=== PATIENT | male | born 1995 | race Caucasian/White ===

== ENCOUNTER 2021-06-01 16:08 | Inpatient (IN) | payer SELFPAY ==
[2021-06-01 17:19] LABS: Bilirubin,Urine NEG (Negative); Blood,Urine NEG (Negative); Color,Urine Amber (Yellow); Mucus,Urine 3+ /HPF
--- NOTE | 2021-06-01 19:43 | Emergency Department Report ---
<ZINA SHAFFER - Last Filed: 06/01/21 23:56> ED Abdominal Pain HPI - General Chief Complaint: Abdominal Pain Stated Complaint: RT LOWER QUAD PAIN Time Seen by Provider: 06/01/21 19:34 Source: patient Mode of arrival: Ambulatory Limitations: No Limitations - History of Present Illness Initial Comments: 25-year-old male presents to the emergency room by referral from [facility] for right upper quadrant pain for 2 days. Patient admits to nausea and vomiting and fever. Patient states he is vaccinated for Covid. Location: RUQ, R flank Severity scale (0 -10): 8 Quality: stabbing, sharp Consistency: constant Improves With: nothing Worsens With: movement Associated Symptoms: nausea, vomiting - Related Data Allergies Allergy/AdvReac Type Severity Reaction Status Date / Time No Known Allergies Allergy Unverified 06/01/21 16:10 ED Review of Systems Comment: All other systems reviewed and negative ED Past Medical Hx - Past Medical History Previous Medical History?: No - Surgical History Past Surgical History?: No ED Physical Exam - General Limitations: No Limitations General appearance: alert, in no apparent distress - Head Head exam: Present: atraumatic, normocephalic - Eye Eye exam: Present: normal appearance - ENT ENT exam: Present: normal external ear exam - Neck Neck exam: Present: full ROM. Absent: lymphadenopathy - Respiratory Respiratory exam: Present: normal lung sounds bilaterally. Absent: chest wall tenderness - Cardiovascular Cardiovascular Exam: Present: tachycardia - GI/Abdominal GI/Abdominal exam: Present: soft, tenderness (Right lower quadrant), normal bowel sounds. Absent: distended, guarding, rebound - Rectal Rectal exam: Present: deferred - exam: Absent: testicular tenderness, scrotal swelling External exam: Present: normal external exam - Extremities Exam Extremities exam: Present: normal inspection - Back Exam Back exam: Present: normal inspection - Neurological Exam Neurological exam: Present: alert, oriented X3, normal gait - Psychiatric Psychiatric exam: Present: normal affect, normal mood - Skin Skin exam: Present: warm, dry, intact, normal color. Absent: rash ED Medical Decision Making - Lab Data Result diagrams: 06/01/21 19:38 06/01/21 19:38 - Radiology Data Radiology results: report reviewed [facility] [address] [place] [address] Ultrasound Report Signed Patient: ARABELLA BOWEN MR#: [id number] : 1995 Acct:[id number] Age/Sex: 25 / M ADM Date: 06/01/21 Loc: ED Attending Dr: Ordering Physician: NIKKI PEREZ Date of Service: 06/01/21 Procedure(s): US abdomen limited Accession Number(s): [id number] cc: NIKKI PEREZ ULTRASOUND ABDOMEN, LIMITED (RIGHT UPPER QUADRANT) INDICATION / CLINICAL INFORMATION: Right upper quadrant pain with nausea and vomiting. COMPARISON: None available. FINDINGS: PANCREAS: Visualized portion shows no significant abnormality. LIVER: No significant abnormality. GALLBLADDER: No significant abnormality. BILE DUCTS: No significant abnormality. Common bile duct measures 3 mm. FREE FLUID: None. ADDITIONAL FINDINGS: None. IMPRESSION: 1. No significant sonographic abnormality of the right upper quadrant. Signer Name: Greg Buitrago DO Signed: 06/01/2021 9:08 PM Workstation Name: [id number] Transcribed By: NS Dictated By: GREG BUITRAGO DO Electronically Authenticated By: GREG BUITRAGO DO Signed Date/Time: 06/01/212107 DD/ 06 TD/TT: [address] [address] Cat Scan Report Signed Patient: ARABELLA BOWEN MR#: [id number] : 1995 Acct:[id number] Age/Sex: 25 / M ADM Date: 06/01/21 Loc: ED Attending Dr: Ordering Physician: NIKKI PEREZ Date of Service: 06/01/21 Procedure(s): CT abdomen pelvis w con Accession Number(s): [id number] cc: NIKKI PEREZ CT abdomen pelvis w con INDICATION / CLINICAL INFORMATION: RIGHT upper quadrant abd pain with nausea, vomiting and fever. TECHNIQUE: Axial CT images were obtained through the abdomen and pelvis after 100 cc of Omnipaque [address] scans at this location are performed using CT dose reduction for ALARA by means of automated exposure control. COMPARISON: None available. FINDINGS: LOWER CHEST: No significant abnormality LIVER: No significant abnormality GALLBLADDER/BILIARY TREE: No significant abnormality PANCREAS: No significant abnormality SPLEEN: No significant abnormality ADRENALS: No significant abnormality KIDNEYS / URETER: No significant abnormality URINARY BLADDER: No significant abnormality REPRODUCTIVE ORGANS: No significant abnormality STOMACH / BOWEL: The tip of the appendix is dilated with prominent. There is fat stranding. At the tip of the appendix, there is a suspected 2.6 x 1.9 cm rim-enhancing collection (series 2 image 103). This could reflect focal dilation of the distal tip or could reflect small abscess. There is otherwise moderate fluid surrounding the appendix and extending along the right paracolic gutter. No extraluminal gas. No evidence of bowel obstruction. LYMPH NODES: Shotty lymph nodes are present within the right lower quadrant mesentery adjacent to the appendix, likely reactive. Otherwise, no significant adenopathy. VASCULATURE: No significant abnormality. SKELETAL SYSTEM: No acute osseous findings. IMPRESSION: 1. Acute appendicitis with 2.6 cm rim-enhancing fluid-filled structure at the tip of the appendix, which may reflect focal dilation of the appendiceal tip or small abscess. Moderate fluid surrounds the appendix and extends along the right paracolic gutter. Findings are concerning for perforation. However, there is no pneumoperitoneum. 2. Other incidental findings as above. Signer Name: Lela Fernando MD Signed: 06/01/2021 10:57 PM Workstation Name: [id number] Transcribed By: LAUREN Dictated By: LELA FERNANDO MD Electronically Authenticated By: LELA FERNANDO MD Signed Date/Time: 06/01/212256 DD/ 49 TD/TT: - Medical Decision Making 25-year-old male presents to the emergency room by referral from [facility] for right upper quadrant pain for 2 days. Patient admits to nausea and vomiting and fever. Patient states he is vaccinated for Covid. CBC CMP lipase ultrasound for right upper quadrant pain. Came back negative decided to do a CT with contrast of abdomen and pelvis secondary to lower quadrant abdominal tenderness. CT came back positive for acute appendicitis with abscess and concerning for perforation but no pneumoperitoneum. Dr. Zuniga came to evaluate patient as he is fluent in English and my concern was patient possibly has an acute appendicitis. Dr. Butler came to evaluate patient and will consult surgery and admit patient ED Disposition Clinical Impression: Acute appendicitis with appendiceal abscess Disposition: ADMITTED INPATIENT Is pt being admited?: Yes Does the pt Need Aspirin: No Condition: Critical <PAVEL DONALDDAVINA Sexton - Last Filed: 06/02/21 00:20> ED Review of Systems ROS: Stated complaint: RT LOWER QUAD PAIN Other details as noted in HPI ED Course Vital Signs 06/01/21 16:11 Temperature 97.9 F Pulse Rate 103 H Respiratory 18 Rate Blood Pressure 138/89 O2 Sat by Pulse 97 Oximetry - Reevaluation(s) Reevaluation #1: I reviewed the findings and management of this patient in real-time and I have personally seen and examined this patient and participated in the decision making for this patient with the midlevel. Patient is a 25-year-old male that presents emergency room for abdominal pain. Patient complaining of right lower quadrant pain that is worsening. Patient also complains of nausea and vomiting. Patient states he has vomited multiple times. Patient states he received some medications and is feeling a little bit better. Patient states he is vaccinated against COVID-19 with [employer]. Patient had a CT done which shows an acute sinusitis with a possible rupture. I discussed all results with patient. I discussed plan of care with patient. Patient agrees with plan of care and admission. Patient to be admitted to the hospitalist service. 06/01/21 23:54 Reevaluation #2: I discussed all results with patient. I discussed plan of care with patient. Patient agrees with plan of care and admission. Patient to be admitted to the hospitalist service. 06/02/21 00:19 - Consultations Consultation #1: I discussed the case with general surgeon, Dr. Hurd. Dr. Hurd wants patient admitted n.p.o. now. 06/02/21 00:01 Consultation #2: Hospitalist consulted for admission. Hospitalist to admit patient. 06/02/21 00:19 ED Medical Decision Making - Lab Data Result diagrams: 06/01/21 19:38 06/01/21 19:38 Critical Care Time: Yes Critical care time in (mins) excluding proc time.: 35 Critical care attestation.: If time is entered above; I have spent that time in minutes in the direct care of this critically ill patient, excluding procedure time. Critical Care Time: 35 minutes ED Disposition Is pt being admited?: Yes Does the pt Need Aspirin: No Time of Disposition: 00:20
[2021-06-01 19:51] LABS: Basophils % (Auto) 0.2 % (0.0-1.8); Eosinophils % (Auto) 0.1 % (0.0-4.3); Lymphocytes # (Auto) 1.3 K/mm3 (1.2-5.4); Lymphocytes % (Auto) 7.7 % (13.4-35.0); Mean Corpuscular HGB Conc 36 % (32-34); Mean Corpuscular Volume 90 fl (84-94); Monocytes # (Auto) 1.3 K/mm3 (0.0-0.8); Monocytes % (Auto) 7.9 % (0.0-7.3); Platelet Count 247 K/mm3 (140-440); Red Blood Count 5.27 M/mm3 (3.65-5.03); Red Cell Distribution Width 12.8 % (13.2-15.2)
[2021-06-01 20:00] LABS: Hematocrit 47.5 % (35.5-45.6); Hemoglobin 16.9 gm/dl (11.8-15.2)
[2021-06-01 20:02] LABS: Amorphous Crystals,Urine 3+; Bilirubin,Urine NEG (Negative); Blood,Urine SM (Negative); Color,Urine Yellow (Yellow)
[2021-06-01 20:03] LABS: RBC,Urine < 1.0 /HPF (0.0-6.0); WBC,Urine < 1.0 /HPF (0.0-6.0)
[2021-06-01 20:08] LABS: Alanine Aminotransferase 18 units/L (7-56); Albumin 4.5 g/dL (3.9-5); BUN/Creatinine Ratio 10; Blood Urea Nitrogen 9 mg/dL (9-20); Calcium 9.2 mg/dL (8.4-10.2); Hemolysis Index 9
[2021-06-01] MEDS ORDERED: SODIUM CHLORIDE 0.9% 1000 ML 1,000 ML IV ONE (20:26)
[2021-06-01] MEDS ORDERED: MORPHINE 4 MG/1 ML INJ IV ONE (20:27)
--- NOTE | 2021-06-01 21:12 | Ultrasound Report ---
ULTRASOUND ABDOMEN, LIMITED (RIGHT UPPER QUADRANT) INDICATION / CLINICAL INFORMATION: Right upper quadrant pain with nausea and vomiting. COMPARISON: None available. FINDINGS: PANCREAS: Visualized portion shows no significant abnormality. LIVER: No significant abnormality. GALLBLADDER: No significant abnormality. BILE DUCTS: No significant abnormality. Common bile duct measures 3 mm. FREE FLUID: None. ADDITIONAL FINDINGS: None. IMPRESSION: 1. No significant sonographic abnormality of the right upper quadrant. Signer Name: Greg Lord DO Signed: 06/01/2021 9:08 PM Workstation Name: [id number]
--- NOTE | 2021-06-01 23:01 | Cat Scan Report ---
CT abdomen pelvis w con INDICATION / CLINICAL INFORMATION: RIGHT upper quadrant abd pain with nausea, vomiting and fever. TECHNIQUE: Axial CT images were obtained through the abdomen and pelvis after 100 cc of Omnipaque [address] scans at this location are performed using CT dose reduction for ALARA by means of automated exposure control. COMPARISON: None available. FINDINGS: LOWER CHEST: No significant abnormality LIVER: No significant abnormality GALLBLADDER/BILIARY TREE: No significant abnormality PANCREAS: No significant abnormality SPLEEN: No significant abnormality ADRENALS: No significant abnormality KIDNEYS / URETER: No significant abnormality URINARY BLADDER: No significant abnormality REPRODUCTIVE ORGANS: No significant abnormality STOMACH / BOWEL: The tip of the appendix is dilated with prominent. There is fat stranding. At the ti p of the appendix, there is a suspected 2.6 x 1.9 cm rim-enhancing collection (series 2 image 103). T his could reflect focal dilation of the distal tip or could reflect small abscess. There is otherwise moderate fluid surrounding the appendix and extending along the right paracolic gutter. No extralumi nal gas. No evidence of bowel obstruction. LYMPH NODES: Shotty lymph nodes are present within the right lower quadrant mesentery adjacent to the appendix, likely reactive. Otherwise, no significant adenopathy. VASCULATURE: No significant abnormality. SKELETAL SYSTEM: No acute osseous findings. IMPRESSION: 1. Acute appendicitis with 2.6 cm rim-enhancing fluid-filled structure at the tip of the appendix, wh ich may reflect focal dilation of the appendiceal tip or small abscess. Moderate fluid surrounds the appendix and extends along the right paracolic gutter. Findings are concerning for perforation. [facility] er, there is no pneumoperitoneum. 2. Other incidental findings as above. Signer Name: Luis Fernando MD Signed: 06/01/2021 10:57 PM Workstation Name: [id number]
[2021-06-01] MEDS ORDERED: PIPERACIL/TAZOBACTA 4.5/NS 100 4.5 GM/100 ML VIAL IV ONE (23:58)
--- NOTE | 2021-06-02 00:31 | History and Physical Report ---
History of Present Illness Date of examination: 06/02/21 Date of admission: 06/02/21 Chief complaint: abdominal pain History of present illness: This is a 25-year-old young male seen in the ED at bedside. Patient reports abdominal pain right lower quadrant. Abdominal pain level 8/10 at the time of this assessment. Patient presented to the ED with the same signs and symptomsabdominal pain that is ongoing for 2 days patient admits nausea vomiting and fever. Patient denies tobacco, drug and alcohol use. I reviewed patient medical record blood work and vital signs. Patient has elevated WBC. CT of the abdomen pelvis showed acute appendicitis with tip of the appendix dilated also showed a fat stranding and possible abscess. Patient is started on empiric antibiotic and general surgeon consulted. Patient is n.p.o. for possible surgery today. Past History Past Medical History: No medical history ( ) Past Surgical History: No surgical history Social history: lives with family. denies: smoking, alcohol abuse, prescription drug abuse, IV drug use Family history: no significant family history Medications and Allergies Allergies Allergy/AdvReac Type Severity Reaction Status Date / Time No Known Allergies Allergy Unverified 06/01/21 16:10 Active Meds: Active Medications Piperacillin Sod/Tazobactam Sod (Zosyn/Ns 4.5gm/100ml) 4.5 gm in 100 mls @ 200 mls/hr IV ONCE ONE; Protocol Stop: 06/02/21 00:27 Last Admin: 06/02/21 00:20 Dose: 200 mls/hr Documented by: Review of Systems Constitutional: no lethargy Ears, nose, mouth and throat: no epistaxis, no bleeding gums Cardiovascular: no shortness of breath Gastrointestinal: abdominal pain, nausea Musculoskeletal: no neck stiffness, no neck pain Integumentary: no rash, no pruritis, no redness Psychiatric: anxiety Hematologic/Lymphatic: no easy bruising, no easy bleeding Allergic/Immunologic: no urticaria, no allergic rhinitis Exam - Constitutional Vitals: Temp Pulse Resp BP Pulse Ox 97.9 F 103 H 18 138/89 97 06/01/21 16:11 06/01/21 16:11 06/01/21 16:11 06/01/21 16:11 06/01/21 16:11 General appearance: Present: mild distress, well-nourished - EENT Eyes: Present: PERRL ENT: hearing intact, clear oral mucosa - Neck Neck: Present: supple, normal ROM - Respiratory Respiratory effort: normal Respiratory: bilateral: CTA - Cardiovascular Heart Sounds: Present: S1 & S2. Absent: rub, click - Extremities Extremities: pulses symmetrical, No edema Peripheral Pulses: within normal limits - Abdominal General gastrointestinal: Present: soft, tender, normal bowel sounds Male genitourinary: Present: normal - Integumentary Integumentary: Present: clear, warm, dry - Musculoskeletal Musculoskeletal: gait normal, strength equal bilaterally - Psychiatric Psychiatric: appropriate mood/affect, intact judgment & insight - Neurologic Neurologic: CNII-XII intact, moves all extremities - Allied Health Allied health notes reviewed: nursing Results - Labs CBC & Chem 7: 06/01/21 19:38 06/01/21 19:38 Labs: Abnormal lab results 06/01/21 06/01/21 Range/Units 19:38 19:38 WBC 16.9 H (4.5-11.0) K/mm3 RBC 5.27 H (3.65-5.03) M/mm3 Hgb 16.9 H (11.8-15.2) gm/dl Hct 47.5 H (35.5-45.6) % MCHC 36 H (32-34) % RDW 12.8 L (13.2-15.2) % Lymph % (Auto) 7.7 L (13.4-35.0) % [place] % (Auto) 7.9 H (0.0-7.3) % [place] # (Auto) 1.3 H (0.0-0.8) K/mm3 Seg Neutrophils % 84.1 H (40.0-70.0) % Seg Neutrophils # 14.2 H (1.8-7.7) K/mm3 Sodium 135 L (137-145) mmol/L Chloride 95.7 L (98-107) mmol/L Glucose 135 H (75-100) mg/dL Total Protein 8.3 H (6.3-8.2) g/dL Assessment and Plan - Patient Problems (1) Acute appendicitis with appendiceal abscess Current Visit: Yes Status: Acute Plan to address problem: CT showed appendicitis with abscess General surgeon consulted Keep patient n.p.o. post midnight Empiric antibiotic and IV hydration (2) Leukocytosis (leucocytosis) Current Visit: Yes Status: Acute Plan to address problem: Empiric intra-abdominal antibiotic Monitor WBC Blood culture x2 follow-up with results (3) Abdominal pain Current Visit: Yes Status: Acute Plan to address problem: Secondary to appendicitis Pain level 8/10continue pain management (4) DVT prophylaxis Current Visit: Yes Status: Acute Plan to address problem: SCD
[2021-06-02] MEDS ORDERED: MORPHINE 2 MG/1 ML INJ IV PRN (01:00)
[2021-06-02] MEDS ORDERED: ONDANSETRON 4 MG/2 ML INJ IV PRN ×2 (01:00→17:01)
[2021-06-02] MEDS ORDERED: NALOXONE 0.4 MG/1 ML INJ IV PRN (01:00)
[2021-06-02] MEDS ORDERED: SENNOSIDES 8.6 MG TAB PO PRN (01:00)
[2021-06-02] MEDS ORDERED: ALUM-MAG HYDROXIDE-SIMETHICONE 200-200-20MG/5ML ORAL LIQD 30 ML PO PRN (01:00)
[2021-06-02] MEDS ORDERED: ACETAMINOPHEN 325 MG TAB PO PRN (01:00)
[2021-06-02] MEDS ORDERED: MORPHINE 4 MG/1 ML INJ IV PRN (01:00)
[2021-06-02] MEDS ORDERED: IBUPROFEN 600 MG TAB PO PRN (01:00)
[2021-06-02] MEDS ORDERED: MAGNESIUM HYDROXIDE (MOM) ORAL LIQD UDC PO PRN (01:00)
[2021-06-02] MEDS: SODIUM CHLORIDE 0.9% 1000 ML 1,000 ML IV SCH (05:53)
[2021-06-02] MEDS: PIPERACIL/TAZOBACTA 4.5/NS 100 4.5 GM/100 ML VIAL IV SCH ×3 (05:53→22:00)
[2021-06-02] MEDS ORDERED: ENOXAPARIN 30 MG/0.3 ML INJ SUB-Q SCH (10:00)
--- NOTE | 2021-06-02 13:24 | Progress Note ---
Assessment and Plan Assessment and plan: (1) Acute appendicitis with appendiceal abscess Current Visit: Yes Status: Acute Plan to address problem: CT showed appendicitis with abscess General surgeon consulted Keep patient n.p.o. post midnight Empiric antibiotic and IV hydration -Will follow up post op. (2) Leukocytosis (leucocytosis) Current Visit: Yes Status: Acute Plan to address problem: Empiric intra-abdominal antibiotic Monitor WBC Blood culture x2 follow-up with results (3) Abdominal pain Current Visit: Yes Status: Acute Plan to address problem: Secondary to appendicitis Pain level 8/10continue pain management (4) DVT prophylaxis Current Visit: Yes Status: Acute Plan to address problem: SCD History Interval history: Resting comfortably on encounter. Awaiting appendectomy. Hospitalist Physical - Physical exam Narrative exam: General appearance: Present: mild distress, well-nourished - EENT Eyes: Present: PERRL ENT: hearing intact, clear oral mucosa - Neck Neck: Present: supple, normal ROM - Respiratory Respiratory effort: normal Respiratory: bilateral: CTA - Cardiovascular Heart Sounds: Present: S1 & S2. Absent: rub, click - Extremities Extremities: pulses symmetrical, No edema Peripheral Pulses: within normal limits - Abdominal General gastrointestinal: Present: soft, tender, normal bowel sounds, predominantly in RLQ. Male genitourinary: Present: normal - Integumentary Integumentary: Present: clear, warm, dry - Musculoskeletal Musculoskeletal: gait normal, strength equal bilaterally - Psychiatric Psychiatric: appropriate mood/affect, intact judgment & insight - Neurologic Neurologic: CNII-XII intact, moves all extremities - Allied Health Allied health notes reviewed: nursing - Constitutional Vitals: Temp Pulse Resp BP Pulse Ox 97.4 F L 76 18 126/61 98 06/02/21 11:34 06/02/21 11:34 06/02/21 11:34 06/02/21 11:34 06/02/21 11:34 General appearance: Present: mild distress, well-nourished Results - Labs CBC & Chem 7: 06/01/21 19:38 06/01/21 19:38 Labs: Laboratory Last Values WBC 16.9 K/mm3 (4.5-11.0) H 06/01/21 19:38 RBC 5.27 M/mm3 (3.65-5.03) H 06/01/21 19:38 Hgb 16.9 gm/dl (11.8-15.2) H 06/01/21 19:38 Hct 47.5 % (35.5-45.6) H 06/01/21 19:38 MCV 90 fl (84-94) 06/01/21 19:38 MCH 32 pg (28-32) 06/01/21 19:38 MCHC 36 % (32-34) H 06/01/21 19:38 RDW 12.8 % (13.2-15.2) L 06/01/21 19:38 Plt Count 247 K/mm3 (140-440) 06/01/21 19:38 Lymph % (Auto) 7.7 % (13.4-35.0) L 06/01/21 19:38 [place] % (Auto) 7.9 % (0.0-7.3) H 06/01/21 19:38 Eos % (Auto) 0.1 % (0.0-4.3) 06/01/21 19:38 Baso % (Auto) 0.2 % (0.0-1.8) 06/01/21 19:38 Lymph # (Auto) 1.3 K/mm3 (1.2-5.4) 06/01/21 19:38 [place] # (Auto) 1.3 K/mm3 (0.0-0.8) H 06/01/21 19:38 Eos # (Auto) 0.0 K/mm3 (0.0-0.4) 06/01/21 19:38 Baso # (Auto) 0.0 K/mm3 (0.0-0.1) 06/01/21 19:38 Seg Neutrophils % 84.1 % (40.0-70.0) H 06/01/21 19:38 Seg Neutrophils # 14.2 K/mm3 (1.8-7.7) H 06/01/21 19:38 Sodium 135 mmol/L (137-145) L 06/01/21 19:38 Potassium 4.0 mmol/L (3.6-5.0) 06/01/21 19:38 Chloride 95.7 mmol/L (98-107) L 06/01/21 19:38 Carbon Dioxide 24 mmol/L (22-30) 06/01/21 19:38 Anion Gap 19 mmol/L 06/01/21 19:38 BUN 9 mg/dL (9-20) 06/01/21 19:38 Creatinine 0.9 mg/dL (0.8-1.3) 06/01/21 19:38 Estimated GFR > 60 ml/min 06/01/21 19:38 BUN/Creatinine Ratio 10 % 06/01/21 19:38 Glucose 135 mg/dL (75-100) H 06/01/21 19:38 Calcium 9.2 mg/dL (8.4-10.2) 06/01/21 19:38 Total Bilirubin 1.00 mg/dL (0.1-1.2) 06/01/21 19:38 AST 14 units/L (5-40) 06/01/21 19:38 ALT 18 units/L (7-56) 06/01/21 19:38 Alkaline Phosphatase 92 units/L (35-129) 06/01/21 19:38 Total Protein 8.3 g/dL (6.3-8.2) H 06/01/21 19:38 Albumin 4.5 g/dL (3.9-5) 06/01/21 19:38 Albumin/Globulin Ratio 1.2 % 06/01/21 19:38 Lipase 24 units/L (13-60) 06/01/21 19:38 Urine Color Yellow (Yellow) 06/01/21 Unknown Urine Turbidity Turbid (Clear) 06/01/21 Unknown Urine pH 5.0 (5.0-7.0) 06/01/21 Unknown Ur Specific [place] 1.030 (1.003-1.030) 06/01/21 Unknown Urine Protein 100 mg/dl mg/dL (Negative) 06/01/21 Unknown Urine Glucose (UA) 50 mg/dL (Negative) 06/01/21 Unknown Urine Ketones Neg mg/dL (Negative) 06/01/21 Unknown Urine Blood Sm (Negative) 06/01/21 Unknown Urine Nitrite Neg (Negative) 06/01/21 Unknown Urine Bilirubin Neg (Negative) 06/01/21 Unknown Urine Urobilinogen 2.0 mg/dL (<2.0) 06/01/21 Unknown Ur Leukocyte Esterase Neg (Negative) 06/01/21 Unknown Urine WBC (Auto) < 1.0 /HPF (0.0-6.0) 06/01/21 Unknown Urine RBC (Auto) < 1.0 /HPF (0.0-6.0) 06/01/21 Unknown U Epithel Cells (Auto) < 1.0 /HPF (0-13.0) 06/01/21 16:17 Amorphous Crystals 3+ 06/01/21 Unknown Urine Mucus 3+ /HPF 06/01/21 16:17 Microbiology: Microbiology 06/02/21 07:24 Peripheral/Venous Blood Culture - Preliminary Culture in Progress 06/02/21 07:24 Peripheral/Venous Blood Culture - Preliminary Culture in Progress Active Medications - Current Medications Current Medications: Generic Name Dose Route Start Last Admin Trade Name Freq PRN Reason Stop Dose Admin Acetaminophen 650 mg 06/02/21 01:00 Acetaminophen 325 Mg Tab PO Q4H PRN Pain MILD(1-3)/Fever >100.5/[place] Al Hydrox/Mg Hydrox/Simethicone 30 ml 06/02/21 01:00 Alum-Mag Hydroxide-Simethicone [phone]/5ml Oral Liqd 30 Ml PO Q4H PRN Indigestion Enoxaparin Sodium 40 mg 06/02/21 10:00 06/02/21 10:27 Enoxaparin 30 Mg/0.3 Ml Inj SUB-Q Not Given DAILY ZULMA Protocol Sodium Chloride 1,000 mls @ 100 mls/hr 06/02/21 01:00 06/02/21 05:53 Nacl 0.9% 1000 Ml IV 100 mls/hr DIRECT ZULMA Administration Piperacillin Sod/Tazobactam Sod 4.5 gm in 100 mls @ 200 mls/hr 06/02/21 06:00 06/02/21 05:53 Zosyn/Ns 4.5gm/100ml IV 200 mls/hr Q8H ZULMA Administration Protocol Ibuprofen 600 mg 06/02/21 01:00 Ibuprofen 600 Mg Tab PO Q6H PRN Pain, Mild (1-3) Magnesium Hydroxide 30 ml 06/02/21 01:00 Magnesium Hydroxide (Mom) Oral Liqd Udc PO Q4H PRN Constipation Morphine Sulfate 2 mg 06/02/21 01:00 Morphine 2 Mg/1 Ml Inj IV Q4H PRN Pain, Moderate (4-6) Morphine Sulfate 4 mg 06/02/21 01:00 Morphine 4 Mg/1 Ml Inj IV Q4H PRN Pain , Severe (7-10) Naloxone HCl 0.1 mg 06/02/21 01:00 Naloxone 0.4 Mg/1 Ml Inj IV Q2MIN PRN Res Rate </= 8 or 02 SAT < 92% Ondansetron HCl 4 mg 06/02/21 01:00 Ondansetron 4 Mg/2 Ml Inj IV Q8H PRN Nausea And Vomiting Oxycodone/Acetaminophen 1 tab 06/02/21 01:00 Oxycodone /Acetaminophen 5-325mg Tab PO Q6H PRN Pain, Moderate (4-6) Senna 8.6 mg 06/02/21 01:00 Sennosides 8.6 Mg Tab PO Q12HR PRN Constipation Sodium Chloride 10 ml 06/02/21 10:00 06/02/21 10:27 Sodium Chloride 0.9% 10 Ml Flush Syringe IV Not Given BID ZULMA
[2021-06-02] MEDS ORDERED: LIDOCAINE MPF (2%) 20 MG/1 ML VIAL 5 ML ONE (14:22)
[2021-06-02] MEDS ORDERED: dexAMETHasone 20 MG/5 ML VIAL ONE (14:22)
[2021-06-02] MEDS ORDERED: ROCURONIUM 50 MG/5 ML INJ IV ONE (14:22)
[2021-06-02] MEDS ORDERED: ONDANSETRON 4 MG/2 ML INJ ONE (14:23)
[2021-06-02] MEDS ORDERED: fentaNYL 100 MCG/2 ML INJ ONE (14:23)
[2021-06-02] MEDS ORDERED: propofoL 200 MG/20 ML VIAL IV ONE (14:24)
--- NOTE | 2021-06-02 14:25 | Anesthesia Day of Surgery ---
Anesthesia Day of Surgery - Day of Surgery Patient Examined: Yes Patient H&P Reviewed: Yes Patient is NPO: Yes
--- NOTE | 2021-06-02 14:26 | Anesthesia Consultation ---
Anesthesia Consult and Med Hx Date of service: 06/02/21 - Airway Anesthetic Teeth Evaluation: Good ROM Head & Neck: Adequate Mental/Hyoid Distance: Adequate Mallampati Class: Class II Intubation Access Assessment: Good - Pre-Operative Health Status ASA Pre-Surgery Classification: ASA1, Emergency Proposed Anesthetic Plan: General - Pulmonary Hx Smoking: No - Other Systems Hx Alcohol Use: No
--- NOTE | 2021-06-02 14:26 | Consultation ---
History of Present Illness Consult date: 06/02/21 Reason for consult: abdominal pain - History of present illness History of present illness: 25 yo male with 24 hour h/o RLQ pain, nausea, vomiting and fever. Denies hematemesis, melena or hematochezia. No change in bowel habits or urinary complaints. Past History Past Medical History: No medical history ( ) Past Surgical History: No surgical history Social history: lives with family. denies: smoking, alcohol abuse, prescription drug abuse, IV drug use Family history: no significant family history Medications and Allergies Allergies Allergy/AdvReac Type Severity Reaction Status Date / Time No Known Allergies Allergy Unverified 06/01/21 16:10 Active Meds: Active Medications Acetaminophen (Acetaminophen 325 Mg Tab) 650 mg PO Q4H PRN PRN Reason: Pain MILD(1-3)/Fever >100.5/[place] Al Hydrox/Mg Hydrox/Simethicone (Alum-Mag Hydroxide-Simethicone [phone]/5ml Oral Liqd 30 Ml) 30 ml PO Q4H PRN PRN Reason: Indigestion Enoxaparin Sodium (Enoxaparin 30 Mg/0.3 Ml Inj) 40 mg SUB-Q DAILY ZULMA; Protocol Last Admin: 06/02/21 10:27 Dose: Not Given Documented by: Sodium Chloride (Nacl 0.9% 1000 Ml) 1,000 mls @ 100 mls/hr IV DIRECT ZULMA Last Admin: 06/02/21 05:53 Dose: 100 mls/hr Documented by: Piperacillin Sod/Tazobactam Sod (Zosyn/Ns 4.5gm/100ml) 4.5 gm in 100 mls @ 200 mls/hr IV Q8H ZULMA; Protocol Last Admin: 06/02/21 05:53 Dose: 200 mls/hr Documented by: Ibuprofen (Ibuprofen 600 Mg Tab) 600 mg PO Q6H PRN PRN Reason: Pain, Mild (1-3) Magnesium Hydroxide (Magnesium Hydroxide (Mom) Oral Liqd Udc) 30 ml PO Q4H PRN PRN Reason: Constipation Morphine Sulfate (Morphine 2 Mg/1 Ml Inj) 2 mg IV Q4H PRN PRN Reason: Pain, Moderate (4-6) Morphine Sulfate (Morphine 4 Mg/1 Ml Inj) 4 mg IV Q4H PRN PRN Reason: Pain , Severe (7-10) Naloxone HCl (Naloxone 0.4 Mg/1 Ml Inj) 0.1 mg IV Q2MIN PRN PRN Reason: Res Rate </= 8 or 02 SAT < 92% Ondansetron HCl (Ondansetron 4 Mg/2 Ml Inj) 4 mg IV Q8H PRN PRN Reason: Nausea And Vomiting Oxycodone/Acetaminophen (Oxycodone /Acetaminophen 5-325mg Tab) 1 tab PO Q6H PRN PRN Reason: Pain, Moderate (4-6) Senna (Sennosides 8.6 Mg Tab) 8.6 mg PO Q12HR PRN PRN Reason: Constipation Sodium Chloride (Sodium Chloride 0.9% 10 Ml Flush Syringe) 10 ml IV BID ZULMA Last Admin: 06/02/21 10:27 Dose: Not Given Documented by: Review of Systems All systems: negative (none) Exam Vital Signs Temp Pulse Resp BP Pulse Ox 97.9 F 103 H 18 138/89 97 06/01/21 16:11 06/01/21 16:11 06/01/21 16:11 06/01/21 16:11 06/01/21 16:11 - General physical appearance Positive: well developed, well nourished, no distress - Eyes Positive: PERRL, normal occular movement - ENT Positive: normal pinna, normal nares, normal mucosa, no hearing loss, no congestion - Neck Positive: no masses, no bruits, trachea midline, no venous distension - Respiratory Positive: normal expansion, normal respiratory effort, clear to auscultation - Cardiovascular Rhythm: regular Heart Sounds: Present: S1 & S2. Absent: rub, click - Extremities Extremities: no ischemia, pulses symmetrical, No edema - Breasts Breasts: normal, no mass, no skin changes - Abdomen Abdomen: Present: soft, bowel sounds normal, other (Tender in the right mid- abdomen/RLQ with early guarding. No rebound.). Absent: distended Hernia: none - Genitourinary Male Genitourinary: normal Female Genitourinary: normal - Integumentary no rash, no growths, no abnormal pigmentation - Neurologic Neurologic: alert and oriented to time, place and person, motor strength and sensation are grossly intact - Musculoskeletal normal gait, normal posture - Psychiatric Psychiatric: appropriate mood/affect, intact judgment & insight Results - Labs 06/01/21 19:38 06/01/21 19:38 Abnormal lab results 06/01/21 06/01/21 Range/Units 19:38 19:38 WBC 16.9 H (4.5-11.0) K/mm3 RBC 5.27 H (3.65-5.03) M/mm3 Hgb 16.9 H (11.8-15.2) gm/dl Hct 47.5 H (35.5-45.6) % MCHC 36 H (32-34) % RDW 12.8 L (13.2-15.2) % Lymph % (Auto) 7.7 L (13.4-35.0) % [place] % (Auto) 7.9 H (0.0-7.3) % [place] # (Auto) 1.3 H (0.0-0.8) K/mm3 Seg Neutrophils % 84.1 H (40.0-70.0) % Seg Neutrophils # 14.2 H (1.8-7.7) K/mm3 Sodium 135 L (137-145) mmol/L Chloride 95.7 L (98-107) mmol/L Glucose 135 H (75-100) mg/dL Total Protein 8.3 H (6.3-8.2) g/dL Diabetes panel 06/01/21 Range/Units 19:38 Sodium 135 L (137-145) mmol/L Potassium 4.0 (3.6-5.0) mmol/L Chloride 95.7 L (98-107) mmol/L Carbon Dioxide 24 (22-30) mmol/L BUN 9 (9-20) mg/dL Creatinine 0.9 (0.8-1.3) mg/dL Glucose 135 H (75-100) mg/dL Calcium 9.2 (8.4-10.2) mg/dL AST 14 (5-40) units/L ALT 18 (7-56) units/L Alkaline Phosphatase 92 (35-129) units/L Total Protein 8.3 H (6.3-8.2) g/dL Albumin 4.5 (3.9-5) g/dL Calcium panel 06/01/21 Range/Units 19:38 Calcium 9.2 (8.4-10.2) mg/dL Albumin 4.5 (3.9-5) g/dL Pituitary panel 06/01/21 Range/Units 19:38 Sodium 135 L (137-145) mmol/L Potassium 4.0 (3.6-5.0) mmol/L Chloride 95.7 L (98-107) mmol/L Carbon Dioxide 24 (22-30) mmol/L BUN 9 (9-20) mg/dL Creatinine 0.9 (0.8-1.3) mg/dL Glucose 135 H (75-100) mg/dL Calcium 9.2 (8.4-10.2) mg/dL Adrenal panel 06/01/21 Range/Units 19:38 Sodium 135 L (137-145) mmol/L Potassium 4.0 (3.6-5.0) mmol/L Chloride 95.7 L (98-107) mmol/L Carbon Dioxide 24 (22-30) mmol/L BUN 9 (9-20) mg/dL Creatinine 0.9 (0.8-1.3) mg/dL Glucose 135 H (75-100) mg/dL Calcium 9.2 (8.4-10.2) mg/dL Total Bilirubin 1.00 (0.1-1.2) mg/dL AST 14 (5-40) units/L ALT 18 (7-56) units/L Alkaline Phosphatase 92 (35-129) units/L Total Protein 8.3 H (6.3-8.2) g/dL Albumin 4.5 (3.9-5) g/dL - Imaging CT scan - abdomen: report reviewed CT scan - pelvis: report reviewed Assessment and Plan - Patient Problems (1) Acute appendicitis with appendiceal abscess Current Visit: Yes Status: Acute Plan to address problem: 1) Broad spectrum IV antibiotics 2) NPO 3) Lap appy
[2021-06-02] MEDS ORDERED: BUPIVACAINE/PF (0.5%) 5 MG/1 ML 30 ML VIAL INFILTRATI ONE ×2 (14:34→16:16)
[2021-06-02] MEDS ORDERED: LACTATED RINGERS 1,000 ML ONE ×2 (14:55→16:27)
[2021-06-02] MEDS ORDERED: HYDROmorphone 1 MG/1 ML INJ ONE (15:16)
[2021-06-02] MEDS ORDERED: SODIUM CHLORIDE 0.9% IRR 1,000 ML BOTTLE IR ONE (15:53)
[2021-06-02] MEDS ORDERED: SODIUM CHLORIDE 0.9% IRRIG SOLN 2000 ML IR ONE (15:56)
[2021-06-02] MEDS ORDERED: GLYCOPYRROLATE 0.4 MG/2 ML INJ ONE (16:00)
[2021-06-02] MEDS ORDERED: NEOSTIGMINE 10MG/10 ML INJ MDV ONE (16:00)
--- NOTE | 2021-06-02 16:35 | Procedure Note ---
Date of procedure: 06/02/21 Pre-op diagnosis: Acute appendicitis with abscess Post-op diagnosis: same Procedure: Laparoscopic appendectomy Description of procedure: Pt was placed supine on the OR table. GETA was administered. Proposed trocar sites were infiltrated with 8 ml of 1% Lidocaine with epinephrine. A small infraumbilical incision was made and the peritoneal cavity carefully entered. A Jose Alberto port was inserted into the peritoneal cavity and pneumoperitoneum established. Two 5 mm ports were inserted in the midline of the suprapubic area and laterally in the LLQ. This was performed under direct vision. Pt was placed head and left side down. An obvious significant inflammatory process was noted in the right mid-abdomen. Adhesions between the cecum and anterior peritoneum were bluntly lysed and a small abscess cavity was entered. Pus from the abscess was collected for C&S. Appendix was eventually identified. Mesoappendix was divided with the Ligasure device. Base of the appendix was amputated with a white load of an endo-RAVI stapler. The appendix was placed in an endobag and the endobag removed via the infraumbilical fascial defect. The Jose Alberto port was replaced and irrigation fluid used during the procedure was aspirated. The two 5 mm ports were removed with no bleeding identified from the port entry sites under low pressure. The infraumbilical fascial defect was closed with two interrupted sutures of 0-Vicryl. Each skin incision was approximated with 1 interrupted suture of 3-0 Nylon. One quarter inch Iodoform wick was then packed in each incision on either side of the 3-0 Nylon suture. Each incision was covered with dry 4 X 4's which was secured with Medipore tape. Anesthesia: GETA Surgeon: DIEGO MORENO Estimated blood loss: 50-100ml Pathology: list (1) appendix 2) C&S) Specimen disposition: to lab Condition: stable Disposition: PACU
[2021-06-02] MEDS ORDERED: HYDROmorphone 1 MG/1 ML INJ IV PRN ×2 (17:01)
[2021-06-03] MEDS: PIPERACIL/TAZOBACTA 4.5/NS 100 4.5 GM/100 ML VIAL IV SCH ×3 (06:00→22:26)
[2021-06-03 06:27] LABS: Basophils % (Auto) 0.1 % (0.0-1.8); Lymphocytes # (Auto) 0.8 K/mm3 (1.2-5.4); Lymphocytes % (Auto) 5.1 % (13.4-35.0); Mean Corpuscular HGB Conc 36 % (32-34); Mean Corpuscular Volume 90 fl (84-94); Monocytes # (Auto) 1.2 K/mm3 (0.0-0.8); Platelet Count 252 K/mm3 (140-440); Red Blood Count 4.95 M/mm3 (3.65-5.03); Red Cell Distribution Width 12.5 % (13.2-15.2)
[2021-06-03 06:34] LABS: Hematocrit 44.5 % (35.5-45.6); Hemoglobin 15.9 gm/dl (11.8-15.2)
[2021-06-03 06:35] LABS: Alanine Aminotransferase 12 units/L (7-56); Blood Urea Nitrogen 9 mg/dL (9-20); Calcium 9.1 mg/dL (8.4-10.2); Hemolysis Index 1
[2021-06-03 06:36] LABS: BUN/Creatinine Ratio 13
[2021-06-03] MEDS: SODIUM CHLORIDE 0.9% 1000 ML 1,000 ML IV SCH (06:41)
--- NOTE | 2021-06-03 08:29 | Post Anesthesia Evaluation ---
- Post Anesthesia Evaluation Patient Participated: Yes Airway Patent: Yes Stable Respiratory Function: Yes Nausea/Vomiting: No Temp > 96.8F: Yes Pain Manageable: Yes Adequeate Hydration: Yes Anesthesia Complications: No Block Receding Appropriately: Not Applicable Patient on Ventilator: No
[2021-06-03] MEDS: ENOXAPARIN 40 MG/0.4 ML INJ SUB-Q SCH (10:15)
--- NOTE | 2021-06-03 14:06 | Progress Note ---
Assessment and Plan - Patient Problems (1) Acute appendicitis with appendiceal abscess Current Visit: Yes Status: Acute Plan to address problem: 1) FLD 2) Continue IV antibiotics 3) F/u C&S Subjective Date of service: 06/03/21 Patient Reports: Positive: no new complaints, feels better, pain is less, tolerating liquids well Objective Vital Signs - 12hr 06/03/21 06/03/21 06/03/21 03:10 08:09 12:16 Temperature 97.6 F 98.2 F 98.2 F Pulse Rate 90 81 83 Respiratory 18 18 18 Rate Blood Pressure 128/70 126/70 136/78 O2 Sat by Pulse 96 96 95 Oximetry - Abdomen soft, bowel sounds hypoactive (Minimal RLQ tenderness) - Labs 06/03/21 05:38 06/03/21 05:14 Diabetes panel 06/03/21 Range/Units 05:14 Sodium 135 L (137-145) mmol/L Potassium 3.7 (3.6-5.0) mmol/L Chloride 97.2 L (98-107) mmol/L Carbon Dioxide 24 (22-30) mmol/L BUN 9 (9-20) mg/dL Creatinine 0.7 L (0.8-1.3) mg/dL Glucose 132 H (75-100) mg/dL Calcium 9.1 (8.4-10.2) mg/dL AST 11 (5-40) units/L ALT 12 (7-56) units/L Alkaline Phosphatase 81 (35-129) units/L Total Protein 8.0 (6.3-8.2) g/dL Albumin 4.0 (3.9-5) g/dL Calcium panel 06/03/21 Range/Units 05:14 Calcium 9.1 (8.4-10.2) mg/dL Albumin 4.0 (3.9-5) g/dL Pituitary panel 06/03/21 Range/Units 05:14 Sodium 135 L (137-145) mmol/L Potassium 3.7 (3.6-5.0) mmol/L Chloride 97.2 L (98-107) mmol/L Carbon Dioxide 24 (22-30) mmol/L BUN 9 (9-20) mg/dL Creatinine 0.7 L (0.8-1.3) mg/dL Glucose 132 H (75-100) mg/dL Calcium 9.1 (8.4-10.2) mg/dL Adrenal panel 06/03/21 Range/Units 05:14 Sodium 135 L (137-145) mmol/L Potassium 3.7 (3.6-5.0) mmol/L Chloride 97.2 L (98-107) mmol/L Carbon Dioxide 24 (22-30) mmol/L BUN 9 (9-20) mg/dL Creatinine 0.7 L (0.8-1.3) mg/dL Glucose 132 H (75-100) mg/dL Calcium 9.1 (8.4-10.2) mg/dL Total Bilirubin 1.40 H (0.1-1.2) mg/dL AST 11 (5-40) units/L ALT 12 (7-56) units/L Alkaline Phosphatase 81 (35-129) units/L Total Protein 8.0 (6.3-8.2) g/dL Albumin 4.0 (3.9-5) g/dL
--- NOTE | 2021-06-03 16:58 | Progress Note ---
Assessment and Plan Assessment and plan: 06/03/2021: recovering well post op. continue supporitive management with ivf and abx. will follow cultures and surgery recs. (1) Acute appendicitis with appendiceal abscess Current Visit: Yes Status: Acute Plan to address problem: CT showed appendicitis with abscess General surgeon consulted Keep patient n.p.o. post midnight Empiric antibiotic and IV hydration (2) Leukocytosis (leucocytosis) Current Visit: Yes Status: Acute Plan to address problem: Empiric intra-abdominal antibiotic Monitor WBC Blood culture x2 follow-up with results (3) Abdominal pain Current Visit: Yes Status: Acute Plan to address problem: Secondary to appendicitis Pain level 8/10continue pain management (4) DVT prophylaxis Current Visit: Yes Status: Acute Plan to address problem: SCD History Interval history: Resting comfortably on encounter. s/p appendectomy. No complaints. Hospitalist Physical - Physical exam Narrative exam: General appearance: Present: mild distress, well-nourished - EENT Eyes: Present: PERRL ENT: hearing intact, clear oral mucosa - Neck Neck: Present: supple, normal ROM - Respiratory Respiratory effort: normal Respiratory: bilateral: CTA - Cardiovascular Heart Sounds: Present: S1 & S2. Absent: rub, click - Extremities Extremities: pulses symmetrical, No edema Peripheral Pulses: within normal limits - Abdominal General gastrointestinal: Present: mildly tender, normal bowel sounds, predominantly in RLQ. Male genitourinary: Present: normal - Integumentary Integumentary: Present: clear, warm, dry, surgical sites healing well, no drainage. - Musculoskeletal Musculoskeletal: gait normal, strength equal bilaterally - Psychiatric Psychiatric: appropriate mood/affect, intact judgment & insight - Neurologic Neurologic: CNII-XII intact, moves all extremities - Allied Health Allied health notes reviewed: nursing - Constitutional Vitals: Temp Pulse Resp BP Pulse Ox 98.2 F 83 18 136/78 95 06/03/21 12:16 06/03/21 12:16 06/03/21 12:16 06/03/21 12:16 06/03/21 12:16 General appearance: Present: mild distress, well-nourished Results - Labs CBC & Chem 7: 06/03/21 05:38 06/03/21 05:14 Labs: Laboratory Last Values WBC 15.3 K/mm3 (4.5-11.0) H 06/03/21 05:38 RBC 4.95 M/mm3 (3.65-5.03) 06/03/21 05:38 Hgb 15.9 gm/dl (11.8-15.2) H 06/03/21 05:38 Hct 44.5 % (35.5-45.6) 06/03/21 05:38 MCV 90 fl (84-94) 06/03/21 05:38 MCH 32 pg (28-32) 06/03/21 05:38 MCHC 36 % (32-34) H 06/03/21 05:38 RDW 12.5 % (13.2-15.2) L 06/03/21 05:38 Plt Count 252 K/mm3 (140-440) 06/03/21 05:38 Lymph % (Auto) 5.1 % (13.4-35.0) L 06/03/21 05:38 [place] % (Auto) 8.0 % (0.0-7.3) H 06/03/21 05:38 Eos % (Auto) 0.0 % (0.0-4.3) 06/03/21 05:38 Baso % (Auto) 0.1 % (0.0-1.8) 06/03/21 05:38 Lymph # (Auto) 0.8 K/mm3 (1.2-5.4) L 06/03/21 05:38 [place] # (Auto) 1.2 K/mm3 (0.0-0.8) H 06/03/21 05:38 Eos # (Auto) 0.0 K/mm3 (0.0-0.4) 06/03/21 05:38 Baso # (Auto) 0.0 K/mm3 (0.0-0.1) 06/03/21 05:38 Seg Neutrophils % 86.8 % (40.0-70.0) H 06/03/21 05:38 Seg Neutrophils # 13.3 K/mm3 (1.8-7.7) H 06/03/21 05:38 Sodium 135 mmol/L (137-145) L 06/03/21 05:14 Potassium 3.7 mmol/L (3.6-5.0) 06/03/21 05:14 Chloride 97.2 mmol/L (98-107) L 06/03/21 05:14 Carbon Dioxide 24 mmol/L (22-30) 06/03/21 05:14 Anion Gap 18 mmol/L 06/03/21 05:14 BUN 9 mg/dL (9-20) 06/03/21 05:14 Creatinine 0.7 mg/dL (0.8-1.3) L 06/03/21 05:14 Estimated GFR > 60 ml/min 06/03/21 05:14 BUN/Creatinine Ratio 13 % 06/03/21 05:14 Glucose 132 mg/dL (75-100) H 06/03/21 05:14 Calcium 9.1 mg/dL (8.4-10.2) 06/03/21 05:14 Total Bilirubin 1.40 mg/dL (0.1-1.2) H 06/03/21 05:14 AST 11 units/L (5-40) 06/03/21 05:14 ALT 12 units/L (7-56) 06/03/21 05:14 Alkaline Phosphatase 81 units/L (35-129) 06/03/21 05:14 Total Protein 8.0 g/dL (6.3-8.2) 06/03/21 05:14 Albumin 4.0 g/dL (3.9-5) 06/03/21 05:14 Albumin/Globulin Ratio 1.0 % 06/03/21 05:14 Lipase 24 units/L (13-60) 06/01/21 19:38 Urine Color Yellow (Yellow) 06/01/21 Unknown Urine Turbidity Turbid (Clear) 06/01/21 Unknown Urine pH 5.0 (5.0-7.0) 06/01/21 Unknown Ur Specific [place] 1.030 (1.003-1.030) 06/01/21 Unknown Urine Protein 100 mg/dl mg/dL (Negative) 06/01/21 Unknown Urine Glucose (UA) 50 mg/dL (Negative) 06/01/21 Unknown Urine Ketones Neg mg/dL (Negative) 06/01/21 Unknown Urine Blood Sm (Negative) 06/01/21 Unknown Urine Nitrite Neg (Negative) 06/01/21 Unknown Urine Bilirubin Neg (Negative) 06/01/21 Unknown Urine Urobilinogen 2.0 mg/dL (<2.0) 06/01/21 Unknown Ur Leukocyte Esterase Neg (Negative) 06/01/21 Unknown Urine WBC (Auto) < 1.0 /HPF (0.0-6.0) 06/01/21 Unknown Urine RBC (Auto) < 1.0 /HPF (0.0-6.0) 06/01/21 Unknown U Epithel Cells (Auto) < 1.0 /HPF (0-13.0) 06/01/21 16:17 Amorphous Crystals 3+ 06/01/21 Unknown Urine Mucus 3+ /HPF 06/01/21 16:17 Microbiology: Microbiology 06/02/21 07:24 Peripheral/Venous Blood Culture - Preliminary NO GROWTH AFTER 24 HOURS 06/02/21 07:24 Peripheral/Venous Blood Culture - Preliminary NO GROWTH AFTER 24 HOURS Priest/IV: Voiding Method Toilet Active Medications - Current Medications Current Medications: Generic Name Dose Route Start Last Admin Trade Name Freq PRN Reason Stop Dose Admin Acetaminophen 650 mg 06/02/21 01:00 Acetaminophen 325 Mg Tab PO Q4H PRN Pain MILD(1-3)/Fever >100.5/[place] Al Hydrox/Mg Hydrox/Simethicone 30 ml 06/02/21 01:00 Alum-Mag Hydroxide-Simethicone [id number]/5ml Oral Liqd 30 Ml PO Q4H PRN Indigestion Enoxaparin Sodium 40 mg 06/03/21 10:00 06/03/21 10:15 Enoxaparin 40 Mg/0.4 Ml Inj SUB-Q 40 mg DAILY ZULMA Administration Protocol Sodium Chloride 1,000 mls @ 100 mls/hr 06/02/21 01:00 06/03/21 06:41 Nacl 0.9% 1000 Ml IV 100 mls/hr DIRECT ZULMA Administration Piperacillin Sod/Tazobactam Sod 4.5 gm in 100 mls @ 200 mls/hr 06/02/21 06:00 06/03/21 06:00 Zosyn/Ns 4.5gm/100ml IV 200 mls/hr Q8H ZULMA Administration Protocol Ibuprofen 600 mg 06/02/21 01:00 Ibuprofen 600 Mg Tab PO Q6H PRN Pain, Mild (1-3) Magnesium Hydroxide 30 ml 06/02/21 01:00 Magnesium Hydroxide (Mom) Oral Liqd Udc PO Q4H PRN Constipation Morphine Sulfate 2 mg 06/02/21 01:00 Morphine 2 Mg/1 Ml Inj IV Q4H PRN Pain, Moderate (4-6) Morphine Sulfate 4 mg 06/02/21 01:00 Morphine 4 Mg/1 Ml Inj IV Q4H PRN Pain , Severe (7-10) Naloxone HCl 0.1 mg 06/02/21 01:00 Naloxone 0.4 Mg/1 Ml Inj IV Q2MIN PRN Res Rate </= 8 or 02 SAT < 92% Ondansetron HCl 4 mg 06/02/21 01:00 Ondansetron 4 Mg/2 Ml Inj IV Q8H PRN Nausea And Vomiting Oxycodone/Acetaminophen 1 tab 06/02/21 01:00 Oxycodone /Acetaminophen 5-325mg Tab PO Q6H PRN Pain, Moderate (4-6) Senna 8.6 mg 06/02/21 01:00 Sennosides 8.6 Mg Tab PO Q12HR PRN Constipation Sodium Chloride 10 ml 06/02/21 10:00 06/02/21 22:00 Sodium Chloride 0.9% 10 Ml Flush Syringe IV 10 ml BID ZULMA Administration
[2021-06-04] MEDS: PIPERACIL/TAZOBACTA 4.5/NS 100 4.5 GM/100 ML VIAL IV SCH ×3 (05:30→22:53)
[2021-06-04] MEDS: oxyCODONE /ACETAMINOPHEN 5-325MG TAB PO PRN ×2 (05:31→15:52)
[2021-06-04] MEDS: ENOXAPARIN 40 MG/0.4 ML INJ SUB-Q SCH (10:43)
--- NOTE | 2021-06-04 13:23 | Progress Note ---
Assessment and Plan Assessment and plan: -- Acute appendicitis with appendiceal abscess Current Visit: Yes Status: Acute CT showed appendicitis with abscess s/p lap cholecystectomy Continue postop care Surgery following -- Leukocytosis (leucocytosis) Current Visit: Yes Status: Acute Trending down, cultures negative to date --Abdominal pain Current Visit: Yes Status: Acute Improved --Obesity; BMI 33.1 Current Visit: Yes Status: Acute Patient may need diet modification exercise as tolerated and weight reduction,Stable --DVT prophylaxis Current Visit: Yes Status: Acute Plan to address problem: SCD Closely monitor the patient and adjust the management as needed Plan of care reviewed with the patient and his nurse Surgery recommendations noted and appreciated Disposition per surgery History Interval history: I have seen and examined the patient at the bedside Patient's chart and medications reviewed Patient feels better is tolerating full liquid diet No new complaints Hospitalist Physical - Constitutional Vitals: Temp Pulse Resp BP Pulse Ox 98 F 75 18 123/56 100 06/04/21 08:00 06/04/21 11:43 06/04/21 08:00 06/04/21 08:00 06/04/21 11:43 General appearance: Present: no acute distress, well-nourished, obese - EENT Eyes: Present: PERRL, EOM intact - Neck Neck: Present: supple, normal ROM - Respiratory Respiratory effort: normal Respiratory: bilateral: diminished, negative: rales, rhonchi, wheezing - Cardiovascular Rhythm: regular Heart Sounds: Present: S1 & S2 - Extremities Extremities: no ischemia, No edema - Abdominal General gastrointestinal: soft, non-tender, non-distended, normal bowel sounds, other (Surgical dressing in place) - Integumentary Integumentary: Present: clear, warm - Psychiatric Psychiatric: appropriate mood/affect, cooperative - Neurologic Neurologic: CNII-XII intact, moves all extremities Results - Labs CBC & Chem 7: 06/04/21 13:57 06/03/21 05:14 Labs: Laboratory Last Values WBC 15.3 K/mm3 (4.5-11.0) H 06/03/21 05:38 RBC 4.95 M/mm3 (3.65-5.03) 06/03/21 05:38 Hgb 15.9 gm/dl (11.8-15.2) H 06/03/21 05:38 Hct 44.5 % (35.5-45.6) 06/03/21 05:38 MCV 90 fl (84-94) 06/03/21 05:38 MCH 32 pg (28-32) 06/03/21 05:38 MCHC 36 % (32-34) H 06/03/21 05:38 RDW 12.5 % (13.2-15.2) L 06/03/21 05:38 Plt Count 252 K/mm3 (140-440) 06/03/21 05:38 Lymph % (Auto) 5.1 % (13.4-35.0) L 06/03/21 05:38 [place] % (Auto) 8.0 % (0.0-7.3) H 06/03/21 05:38 Eos % (Auto) 0.0 % (0.0-4.3) 06/03/21 05:38 Baso % (Auto) 0.1 % (0.0-1.8) 06/03/21 05:38 Lymph # (Auto) 0.8 K/mm3 (1.2-5.4) L 06/03/21 05:38 [place] # (Auto) 1.2 K/mm3 (0.0-0.8) H 06/03/21 05:38 Eos # (Auto) 0.0 K/mm3 (0.0-0.4) 06/03/21 05:38 Baso # (Auto) 0.0 K/mm3 (0.0-0.1) 06/03/21 05:38 Seg Neutrophils % 86.8 % (40.0-70.0) H 06/03/21 05:38 Seg Neutrophils # 13.3 K/mm3 (1.8-7.7) H 06/03/21 05:38 Sodium 135 mmol/L (137-145) L 06/03/21 05:14 Potassium 3.7 mmol/L (3.6-5.0) 06/03/21 05:14 Chloride 97.2 mmol/L (98-107) L 06/03/21 05:14 Carbon Dioxide 24 mmol/L (22-30) 06/03/21 05:14 Anion Gap 18 mmol/L 06/03/21 05:14 BUN 9 mg/dL (9-20) 06/03/21 05:14 Creatinine 0.7 mg/dL (0.8-1.3) L 06/03/21 05:14 Estimated GFR > 60 ml/min 06/03/21 05:14 BUN/Creatinine Ratio 13 % 06/03/21 05:14 Glucose 132 mg/dL (75-100) H 06/03/21 05:14 Calcium 9.1 mg/dL (8.4-10.2) 06/03/21 05:14 Total Bilirubin 1.40 mg/dL (0.1-1.2) H 06/03/21 05:14 AST 11 units/L (5-40) 06/03/21 05:14 ALT 12 units/L (7-56) 06/03/21 05:14 Alkaline Phosphatase 81 units/L (35-129) 06/03/21 05:14 Total Protein 8.0 g/dL (6.3-8.2) 06/03/21 05:14 Albumin 4.0 g/dL (3.9-5) 06/03/21 05:14 Albumin/Globulin Ratio 1.0 % 06/03/21 05:14 Lipase 24 units/L (13-60) 06/01/21 19:38 Urine Color Yellow (Yellow) 06/01/21 Unknown Urine Turbidity Turbid (Clear) 06/01/21 Unknown Urine pH 5.0 (5.0-7.0) 06/01/21 Unknown Ur Specific [place] 1.030 (1.003-1.030) 06/01/21 Unknown Urine Protein 100 mg/dl mg/dL (Negative) 06/01/21 Unknown Urine Glucose (UA) 50 mg/dL (Negative) 06/01/21 Unknown Urine Ketones Neg mg/dL (Negative) 06/01/21 Unknown Urine Blood Sm (Negative) 06/01/21 Unknown Urine Nitrite Neg (Negative) 06/01/21 Unknown Urine Bilirubin Neg (Negative) 06/01/21 Unknown Urine Urobilinogen 2.0 mg/dL (<2.0) 06/01/21 Unknown Ur Leukocyte Esterase Neg (Negative) 06/01/21 Unknown Urine WBC (Auto) < 1.0 /HPF (0.0-6.0) 06/01/21 Unknown Urine RBC (Auto) < 1.0 /HPF (0.0-6.0) 06/01/21 Unknown U Epithel Cells (Auto) < 1.0 /HPF (0-13.0) 06/01/21 16:17 Amorphous Crystals 3+ 06/01/21 Unknown Urine Mucus 3+ /HPF 06/01/21 16:17 Microbiology: Microbiology 06/02/21 07:24 Peripheral/Venous Blood Culture - Preliminary NO GROWTH AFTER 48 HOURS 06/02/21 07:24 Peripheral/Venous Blood Culture - Preliminary NO GROWTH AFTER 48 HOURS 06/02/21 Unknown Peritoneal Fluid Surgical Culture - Preliminary Priest/IV: Voiding Method Toilet Active Medications - Current Medications Current Medications: Generic Name Dose Route Start Last Admin Trade Name Freq PRN Reason Stop Dose Admin Acetaminophen 650 mg 06/02/21 01:00 Acetaminophen 325 Mg Tab PO Q4H PRN Pain MILD(1-3)/Fever >100.5/[place] Al Hydrox/Mg Hydrox/Simethicone 30 ml 06/02/21 01:00 Alum-Mag Hydroxide-Simethicone [id number]/5ml Oral Liqd 30 Ml PO Q4H PRN Indigestion Enoxaparin Sodium 40 mg 06/03/21 10:00 06/04/21 10:43 Enoxaparin 40 Mg/0.4 Ml Inj SUB-Q 40 mg DAILY ZULMA Administration Protocol Sodium Chloride 1,000 mls @ 100 mls/hr 06/02/21 01:00 06/03/21 06:41 Nacl 0.9% 1000 Ml IV 100 mls/hr DIRECT ZULMA Administration Piperacillin Sod/Tazobactam Sod 4.5 gm in 100 mls @ 200 mls/hr 06/02/21 06:00 06/04/21 05:30 Zosyn/Ns 4.5gm/100ml IV 200 mls/hr Q8H ZULMA Administration Protocol Ibuprofen 600 mg 06/02/21 01:00 Ibuprofen 600 Mg Tab PO Q6H PRN Pain, Mild (1-3) Magnesium Hydroxide 30 ml 06/02/21 01:00 Magnesium Hydroxide (Mom) Oral Liqd Udc PO Q4H PRN Constipation Morphine Sulfate 2 mg 06/02/21 01:00 Morphine 2 Mg/1 Ml Inj IV Q4H PRN Pain, Moderate (4-6) Morphine Sulfate 4 mg 06/02/21 01:00 Morphine 4 Mg/1 Ml Inj IV Q4H PRN Pain , Severe (7-10) Naloxone HCl 0.1 mg 06/02/21 01:00 Naloxone 0.4 Mg/1 Ml Inj IV Q2MIN PRN Res Rate </= 8 or 02 SAT < 92% Ondansetron HCl 4 mg 06/02/21 01:00 Ondansetron 4 Mg/2 Ml Inj IV Q8H PRN Nausea And Vomiting Oxycodone/Acetaminophen 1 tab 06/02/21 01:00 06/04/21 05:31 Oxycodone /Acetaminophen 5-325mg Tab PO 1 tab Q6H PRN Administration Pain, Moderate (4-6) Senna 8.6 mg 06/02/21 01:00 Sennosides 8.6 Mg Tab PO Q12HR PRN Constipation Sodium Chloride 10 ml 06/02/21 10:00 06/04/21 10:43 Sodium Chloride 0.9% 10 Ml Flush Syringe IV 10 ml BID ZULMA Administration
--- NOTE | 2021-06-04 13:45 | Progress Note ---
Assessment and Plan - Patient Problems (1) Acute appendicitis with appendiceal abscess Current Visit: Yes Status: Acute Plan to address problem: 1) Check CBC 2) FLD 3) F/u C&S Subjective Date of service: 06/04/21 Patient Reports: Positive: no new complaints, feels better, pain is less, tolerating liquids well Objective Vital Signs - 12hr 06/04/21 06/04/21 06/04/21 02:00 03:51 08:00 Temperature 97.9 F 98 F Pulse Rate 84 88 75 Respiratory 16 18 Rate Blood Pressure 113/68 Blood Pressure 123/56 [Right] O2 Sat by Pulse 97 Oximetry 06/04/21 11:43 Temperature Pulse Rate 75 Respiratory Rate Blood Pressure Blood Pressure [Right] O2 Sat by Pulse 100 Oximetry - Abdomen soft, bowel sounds normal (NT, ND) - Labs 06/03/21 05:38 06/03/21 05:14
[2021-06-04 14:17] LABS: Basophils # (Auto) 0.1 K/mm3 (0.0-0.1); Basophils % (Auto) 0.9 % (0.0-1.8); Eosinophils # (Auto) 0.1 K/mm3 (0.0-0.4); Eosinophils % (Auto) 0.8 % (0.0-4.3); Hematocrit 41.1 % (35.5-45.6); Hemoglobin 14.4 gm/dl (11.8-15.2); Lymphocytes # (Auto) 1.3 K/mm3 (1.2-5.4); Lymphocytes % (Auto) 15.7 % (13.4-35.0); Mean Corpuscular HGB Conc 35 % (32-34); Mean Corpuscular Volume 91 fl (84-94); Monocytes # (Auto) 0.7 K/mm3 (0.0-0.8); Platelet Count 245 K/mm3 (140-440); Red Blood Count 4.51 M/mm3 (3.65-5.03); Red Cell Distribution Width 12.6 % (13.2-15.2)
[2021-06-04] MEDS: SODIUM CHLORIDE 0.9% 1000 ML 1,000 ML IV SCH (15:52)
[2021-06-05] MEDS: SODIUM CHLORIDE 0.9% 1000 ML 1,000 ML IV SCH (02:31)
[2021-06-05 06:09] VITALS: BP 125/71
[2021-06-05] MEDS: ENOXAPARIN 40 MG/0.4 ML INJ SUB-Q SCH (10:20)
--- NOTE | 2021-06-05 13:08 | Progress Note ---
Assessment and Plan Assessment and plan: -- Acute appendicitis with appendiceal abscess Current Visit: Yes Status: Acute CT showed appendicitis with abscess s/p lap cholecystectomy Continue postop care Surgery following -- Leukocytosis (leucocytosis) Current Visit: Yes Status: Acute Trending down, cultures negative to date --surgical cultures positive for beta-hemolytic strep F; Current Visit: Yes Status: Acute Patient currently on Zosyn, ID consult --Abdominal pain Current Visit: Yes Status: Acute Improved --Obesity; BMI 33.1 Current Visit: Yes Status: Acute Patient may need diet modification exercise as tolerated and weight reduction,Stable --DVT prophylaxis Current Visit: Yes Status: Acute Plan to address problem: SCD Closely monitor the patient and adjust the management as needed Plan of care reviewed with the patient and his nurse Surgery recommendations noted and appreciated Disposition per surgery Hospitalist Physical - Constitutional Vitals: Temp Pulse Resp BP Pulse Ox 99.1 F 76 18 125/71 100 06/05/21 05:48 06/05/21 09:15 06/05/21 05:48 06/05/21 05:48 06/05/21 09:15 General appearance: Present: no acute distress, well-nourished, obese Results - Labs CBC & Chem 7: 06/04/21 13:57 06/03/21 05:14 Labs: Laboratory Last Values WBC 8.6 K/mm3 (4.5-11.0) 06/04/21 13:57 RBC 4.51 M/mm3 (3.65-5.03) 06/04/21 13:57 Hgb 14.4 gm/dl (11.8-15.2) 06/04/21 13:57 Hct 41.1 % (35.5-45.6) 06/04/21 13:57 MCV 91 fl (84-94) 06/04/21 13:57 MCH 32 pg (28-32) 06/04/21 13:57 MCHC 35 % (32-34) H 06/04/21 13:57 RDW 12.6 % (13.2-15.2) L 06/04/21 13:57 Plt Count 245 K/mm3 (140-440) 06/04/21 13:57 Lymph % (Auto) 15.7 % (13.4-35.0) 06/04/21 13:57 [place] % (Auto) 8.0 % (0.0-7.3) H 06/04/21 13:57 Eos % (Auto) 0.8 % (0.0-4.3) 06/04/21 13:57 Baso % (Auto) 0.9 % (0.0-1.8) 06/04/21 13:57 Lymph # (Auto) 1.3 K/mm3 (1.2-5.4) 06/04/21 13:57 Knox # (Auto) 0.7 K/mm3 (0.0-0.8) 06/04/21 13:57 Eos # (Auto) 0.1 K/mm3 (0.0-0.4) 06/04/21 13:57 Baso # (Auto) 0.1 K/mm3 (0.0-0.1) 06/04/21 13:57 Seg Neutrophils % 74.6 % (40.0-70.0) H 06/04/21 13:57 Seg Neutrophils # 6.4 K/mm3 (1.8-7.7) 06/04/21 13:57 Sodium 135 mmol/L (137-145) L 06/03/21 05:14 Potassium 3.7 mmol/L (3.6-5.0) 06/03/21 05:14 Chloride 97.2 mmol/L (98-107) L 06/03/21 05:14 Carbon Dioxide 24 mmol/L (22-30) 06/03/21 05:14 Anion Gap 18 mmol/L 06/03/21 05:14 BUN 9 mg/dL (9-20) 06/03/21 05:14 Creatinine 0.7 mg/dL (0.8-1.3) L 06/03/21 05:14 Estimated GFR > 60 ml/min 06/03/21 05:14 BUN/Creatinine Ratio 13 % 06/03/21 05:14 Glucose 132 mg/dL (75-100) H 06/03/21 05:14 Calcium 9.1 mg/dL (8.4-10.2) 06/03/21 05:14 Total Bilirubin 1.40 mg/dL (0.1-1.2) H 06/03/21 05:14 AST 11 units/L (5-40) 06/03/21 05:14 ALT 12 units/L (7-56) 06/03/21 05:14 Alkaline Phosphatase 81 units/L (35-129) 06/03/21 05:14 Total Protein 8.0 g/dL (6.3-8.2) 06/03/21 05:14 Albumin 4.0 g/dL (3.9-5) 06/03/21 05:14 Albumin/Globulin Ratio 1.0 % 06/03/21 05:14 Lipase 24 units/L (13-60) 06/01/21 19:38 Urine Color Yellow (Yellow) 06/01/21 Unknown Urine Turbidity Turbid (Clear) 06/01/21 Unknown Urine pH 5.0 (5.0-7.0) 06/01/21 Unknown Ur Specific Antelope 1.030 (1.003-1.030) 06/01/21 Unknown Urine Protein 100 mg/dl mg/dL (Negative) 06/01/21 Unknown Urine Glucose (UA) 50 mg/dL (Negative) 06/01/21 Unknown Urine Ketones Neg mg/dL (Negative) 06/01/21 Unknown Urine Blood Sm (Negative) 06/01/21 Unknown Urine Nitrite Neg (Negative) 06/01/21 Unknown Urine Bilirubin Neg (Negative) 06/01/21 Unknown Urine Urobilinogen 2.0 mg/dL (<2.0) 06/01/21 Unknown Ur Leukocyte Esterase Neg (Negative) 06/01/21 Unknown Urine WBC (Auto) < 1.0 /HPF (0.0-6.0) 06/01/21 Unknown Urine RBC (Auto) < 1.0 /HPF (0.0-6.0) 06/01/21 Unknown U Epithel Cells (Auto) < 1.0 /HPF (0-13.0) 06/01/21 16:17 Amorphous Crystals 3+ 06/01/21 Unknown Urine Mucus 3+ /HPF 06/01/21 16:17 Microbiology: Microbiology 06/02/21 Unknown Peritoneal Fluid Surgical Culture - Preliminary Beta Hemolytic Strep Group F 06/02/21 07:24 Peripheral/Venous Blood Culture - Preliminary NO GROWTH AFTER 72 HOURS 06/02/21 07:24 Peripheral/Venous Blood Culture - Preliminary NO GROWTH AFTER 72 HOURS Priest/IV: Voiding Method Toilet Active Medications - Current Medications Current Medications: Generic Name Dose Route Start Last Admin Trade Name Freq PRN Reason Stop Dose Admin Acetaminophen 650 mg 06/02/21 01:00 Acetaminophen 325 Mg Tab PO Q4H PRN Pain MILD(1-3)/Fever >100.5/[place] Al Hydrox/Mg Hydrox/Simethicone 30 ml 06/02/21 01:00 Alum-Mag Hydroxide-Simethicone [id number]/5ml Oral Liqd 30 Ml PO Q4H PRN Indigestion Enoxaparin Sodium 40 mg 06/03/21 10:00 06/05/21 10:20 Enoxaparin 40 Mg/0.4 Ml Inj SUB-Q 40 mg DAILY ZULMA Administration Protocol Sodium Chloride 1,000 mls @ 100 mls/hr 06/02/21 01:00 06/05/21 02:31 Nacl 0.9% 1000 Ml IV 100 mls/hr DIRECT ZULMA Administration Piperacillin Sod/Tazobactam Sod 4.5 gm in 100 mls @ 200 mls/hr 06/02/21 06:00 06/04/21 22:53 Zosyn/Ns 4.5gm/100ml IV 200 mls/hr Q8H ZULMA Administration Protocol Ibuprofen 600 mg 06/02/21 01:00 Ibuprofen 600 Mg Tab PO Q6H PRN Pain, Mild (1-3) Magnesium Hydroxide 30 ml 06/02/21 01:00 Magnesium Hydroxide (Mom) Oral Liqd Udc PO Q4H PRN Constipation Morphine Sulfate 2 mg 06/02/21 01:00 Morphine 2 Mg/1 Ml Inj IV Q4H PRN Pain, Moderate (4-6) Morphine Sulfate 4 mg 06/02/21 01:00 06/04/21 22:53 Morphine 4 Mg/1 Ml Inj IV 4 mg Q4H PRN Administration Pain , Severe (7-10) Naloxone HCl 0.1 mg 06/02/21 01:00 Naloxone 0.4 Mg/1 Ml Inj IV Q2MIN PRN Res Rate </= 8 or 02 SAT < 92% Ondansetron HCl 4 mg 06/02/21 01:00 06/04/21 22:55 Ondansetron 4 Mg/2 Ml Inj IV 4 mg Q8H PRN Administration Nausea And Vomiting Oxycodone/Acetaminophen 1 tab 06/02/21 01:00 06/04/21 15:52 Oxycodone /Acetaminophen 5-325mg Tab PO 1 tab Q6H PRN Administration Pain, Moderate (4-6) Senna 8.6 mg 06/02/21 01:00 Sennosides 8.6 Mg Tab PO Q12HR PRN Constipation Sodium Chloride 10 ml 06/02/21 10:00 06/05/21 10:20 Sodium Chloride 0.9% 10 Ml Flush Syringe IV 10 ml BID ZULMA Administration
--- NOTE | 2021-06-05 13:41 | Progress Note ---
Assessment and Plan - Patient Problems (1) Acute appendicitis with appendiceal abscess Current Visit: Yes Status: Acute Plan to address problem: 1) Okay for discharge from my perspective. Would discharge on Cipro, 500 mg po bid X 7 days + antibiotic coverage for beta hemolytic strep. 2) F/u in my office in 7-10 days 3) Narcotic of choice 4) No lifting or straining 5) May shower in 2 days. Subjective Date of service: 06/05/21 Patient Reports: Positive: no new complaints, feels better, pain is less, tolerating a regular diet, flatus Objective Vital Signs - 12hr 06/05/21 06/05/21 06/05/21 03:00 05:48 09:15 Temperature 99.1 F Pulse Rate 71 76 76 Respiratory 18 Rate Blood Pressure 125/71 O2 Sat by Pulse 94 100 Oximetry - Abdomen soft, bowel sounds normal (NT; Iodoform jean-paul removed.) - Labs 06/04/21 13:57 06/03/21 05:14 - Imaging Additional Studies: C&S - Beta Hemolytic strep, heavy growth
--- NOTE | 2021-06-05 14:22 | Discharge Summary ---
Providers - Providers Date of Admission: 06/04/21 19:03 Date of discharge: 06/05/21 Attending physician: LEXX RIVERO 06/02/21 00:00 Consult to Physician [CONS] Routine Comment: Consulting Provider: DIEGO HURD Physician Instructions: Reason For Exam: acute appi Primary care physician: PHYSICIAN REPRESENTATIVE Hospitalization Reason for admission: Right lower quadrant pain nausea vomiting and fever/ acute appendicitis/ Condition: Stable Pertinent studies: CT abdomen and pelvis; acute appendicitis with 2.6 cm rim-enhancing fluid-filled structure at the tip of the appendix which may reflect small abscess Procedures: Acute appendicitis with abscess ;s/p Lap appendectomy Hospital course: 25-year-old male patient with no significant past medical history was admitted through emergency room with right lower quadrant pain with nausea vomiting and fever Patient was initially evaluated placed on n.p.o. status CT abdomen and pelvis findings are consistent with acute appendicitis with small abscess, patient was subsequently evaluated by surgeon and promptly underwent lap appendicectomy. Patient was placed on antibiotics and supportive care initially was n.p.o. status later gradually started clear liquids and advance to full liquids. Today patient is comfortable no new complaints vital signs stable Tolerating full liquids afebrile However surgical cultures are positive for positive for beta-hemolytic strep group F. Surgeon Dr. Hurd recommended to discharge on Cipro 500 twice a day for 7 days and, appropriate antibiotic for beta-hemolytic strep group F, discharged on Cipro 500 twice daily as well as Ceftin 500 twice daily for 7 days each. Today patient is comfortable afebrile tolerating full liquid diet no new complaints vital signs stable Cleared by surgeon to discharge and follow-up with him in 7 to 10 days time Patient is hemodynamically and clinically stable at discharge Discharge diagnosis; -- Acute appendicitis with appendiceal abscess Current Visit: Yes Status: Acute CT showed appendicitis with abscess s/p lap cholecystectomy Continue postop care Surgery following -- Leukocytosis (leucocytosis) Current Visit: Yes Status: Acute Trending down, cultures negative to date --surgical cultures positive for beta-hemolytic strep F; Current Visit: Yes Status: Acute Patient currently on Zosyn, ID consult --Abdominal pain Current Visit: Yes Status: Acute Improved --Obesity; BMI 33.1 Current Visit: Yes Status: Acute Patient may need diet modification exercise as tolerated and weight reduction,Stable Disposition: 01 HOME / SELF CARE / HOMELESS Final Discharge Diagnosis (Prints w/discharge instructions): Acute appendicitis with abscess. s/p lap cholecystectomy. Leukocytosis improved. Beta-hemolytic surgical cultures/on antibiotics. Abdominal pain/resolved. Obesity BMI 33.1 Time spent for discharge: 35 min Core Measure Documentation - Palliative Care Palliative Care/ Comfort Measures: Not Applicable - Core Measures Any of the following diagnoses?: none Exam - Constitutional Vitals: Temp Pulse Resp BP Pulse Ox 99.1 F 76 18 125/71 100 06/05/21 05:48 06/05/21 09:15 06/05/21 05:48 06/05/21 05:48 06/05/21 09:15 General appearance: Present: no acute distress, well-nourished - EENT Eyes: Present: PERRL, EOM intact - Neck Neck: Present: supple, normal ROM - Respiratory Respiratory effort: normal Respiratory: bilateral: diminished, negative: rales, rhonchi, wheezing - Cardiovascular Rhythm: regular Heart Sounds: Present: S1 & S2 - Extremities Extremities: no ischemia, No edema - Abdominal General gastrointestinal: Present: soft, non-tender, non-distended, normal bowel sounds - Integumentary Integumentary: Present: clear, warm - Musculoskeletal Musculoskeletal: strength equal bilaterally - Psychiatric Psychiatric: appropriate mood/affect, cooperative - Neurologic Neurologic: CNII-XII intact, moves all extremities Plan Activity: no restrictions Diet: advance as tolerated, other (Full liquid diet, advance as tolerated) Additional Instructions: No lifting or straining. May shower in 2 days. Full liquid diet, advance as tolerated. If you have worsening symptoms contact MD or go to emergency room as needed Follow up with: PRIMARY MD TARA [Primary Care Provider] - 7 Days DIEGO HURD MD [Staff Physician] - 10 Days Prescriptions: cefUROXime [Ceftin] 2 tab PO Q12H #28 tablet Ciprofloxacin [Ciprofloxacin ORAL LIQ] 500 mg PO Q12H #14 ml Ibuprofen [Motrin 600 MG tab] 600 mg PO Q6H PRN #20 tablet PRN Reason: Pain, Mild (1-3) oxyCODONE /ACETAMINOPHEN [Percocet 5/325 mg] 1 tab PO BID PRN #10 tablet PRN Reason: Pain, Moderate (4-6)
[2021-06-05] MEDS: PIPERACIL/TAZOBACTA 4.5/NS 100 4.5 GM/100 ML VIAL IV SCH (14:38)
== END 2021-06-05 17:00 | disposition home or self-care (01) | DRG 340 ==
LOC: ED 16:08 → 4A 06-02 00:34 → OBSVTOIN 06-04 19:03
PROVIDERS: ADMIT Hospitalist; ATTEND Internal Medicine
PROC: 0DTJ4ZZ Resection of Appendix, Percutaneous Endoscopic Approach (ICD-10-PCS; principal; 2021-06-02)
DX: K35.33 Acute appendicitis with perforation, localized peritonitis, and gangrene, with abscess (principal); D72.829 Elevated white blood cell count, unspecified; E66.9 Obesity, unspecified; Z68.33 Body mass index [BMI] 33.0-33.9, adult; B95.4 Other streptococcus as the cause of diseases classified elsewhere
CPT/HCPCS: 36415; 74177; 76705; 80048; 80053; 81001; 83690; 85025; 87040; 87116; 88304; G0378; A4217; J1100; J1170; J1650; J2270; J2405; J2543; J2704; J2710; J3010; J7030; J7120; Q9967